=== PATIENT | female | born 1960 | race Caucasian/White ===

== ENCOUNTER 2022-06-07 16:05 | Outpatient (CLI) | payer MEDICARE, OTHER | END 2022-06-07 16:06 | disposition home or self-care (01) | LOC: MADRAD 16:05 | PROVIDERS: ATTEND Family Medicine | DX: J90 Pleural effusion, not elsewhere classified (principal); Z87.01 Personal history of pneumonia (recurrent) | CPT/HCPCS: 71046 ==

== ENCOUNTER 2022-08-14 17:08 | Outpatient (CLI) | payer MEDICARE, OTHER | END 2022-08-14 17:09 | disposition home or self-care (01) | LOC: MADRAD 17:08 | PROVIDERS: ATTEND Family Medicine | DX: R91.8 Other nonspecific abnormal finding of lung field (principal); J98.4 Other disorders of lung | CPT/HCPCS: 71046 ==